=== PATIENT | female | born 1970 | race Caucasian/White ===

== ENCOUNTER 2020-12-16 05:50 | Emergency (ER) | payer OTHER ==
[~2020-12-16] VITALS: Ht 175.3 cm; Wt 95.3 kg
[~2020-12-16 05:50] MED LIST: CIPR500T4 PO; FURO-572 PO; INDO-323 PO; LISI-487 PO; METO25TA PO
--- NOTE | 2020-12-16 06:15 | NUR ---
50 yo f [facility] for c/o body pain. per EMS family stated pt used meth x2 days ago. pt denies meth use; pt states she smoked THC and cigarettes, drank alcohol 1/2 pint. pt not wanting to hurt herself or others. pt AAOx3, following commands, talkative. hx: schizophrenia ---off meds x4 yrs ago, multi drug abuse, RA, CHF, COPD, asthma ax: codeine, pcn meds: unknown lmp: x 3-4 yrs ago
[2020-12-16 06:25] VITALS: BP 140/107
[2020-12-16] MEDS ORDERED: KETOROLAC 60 MG/2 ML VIAL IM ONE (06:40)
--- NOTE | 2020-12-16 06:59 | NUR ---
water given to pt, pt unable to void @ this time.
--- NOTE | 2020-12-16 07:19 | NUR ---
report given to day shift for continuity of care.
[2020-12-16 08:04] LABS: BASOPHILS % (AUTO) 0.3 % (0.0-2.0); EOSINOPHILS # (AUTO) 0.2 K/uL (0-0.4); EOSINOPHILS % (AUTO) 2.4 % (0.0-4.0); HEMATOCRIT 38.8 % (36-48); LYMPHOCYTES # (AUTO) 1.4 K/uL (2.5-16.5); LYMPHOCYTES % (AUTO) 14.1 % (20.5-51.1); MEAN CORPUSCULAR HEMOGLOBIN 30 pg (27-31); MEAN CORPUSCULAR HGB CONC 34 g/dL (33-37); MEAN CORPUSCULAR VOLUME 89.3 fL (80-94); MONOCYTES # (AUTO) 0.3 K/uL (0.8-1.0); MONOCYTES % (AUTO) 2.6 % (1.7-9.3); NEUTROPHILS # (AUTO) 7.8 K/uL (1.8-7.7); NEUTROPHILS % (AUTO) 80.6 % (42.2-75.2); PLATELET COUNT (AUTO) 264 K/uL (140-450); RED BLOOD CELL COUNT(AUTO) 4.34 MIL/uL (4.20-5.40); RED CELL DISTRIBUTION WIDTH 14.3 % (11.6-13.7); WHITE BLOOD COUNT (AUTO) 9.7 K/uL (4.8-10.8)
[2020-12-16 08:13] LABS: ANION GAP 14.8 (8-16); CARBON DIOXIDE 25.7 mmol/L (21-32); CREATININE 0.7 mg/dL (0.6-1.3); POTASSIUM 3.5 mmol/L (3.5-5.1)
--- NOTE | 2020-12-16 08:44 | NUR ---
Called mother and spoke to Kacey. Mother states she does not have anyone to pick her up at this time. She asked we call her back because she was receiving another call.
--- NOTE | 2020-12-16 09:09 | NUR ---
Spoke with patients rupinder Page, stating she will be here in 20-30 min to pick patient up.
[2020-12-16 09:10] VITALS: BP 156/95
--- NOTE | 2020-12-16 09:11 | NUR ---
Patient discharged with v/s stable. Written and verbal after care instructions given and explained. Patient verbalized understanding. Wheel Chair Assisted with to lobby to await niece. All questions addressed prior to discharge. Advised to follow up with PMD.
== END 2020-12-16 09:11 | disposition home or self-care (01) ==
LOC: MED 05:50
DX: R45.1 Restlessness and agitation (principal); M79.10 Myalgia, unspecified site; J45.909 Unspecified asthma, uncomplicated; I11.0 Hypertensive heart disease with heart failure; I50.9 Heart failure, unspecified; E07.9 Disorder of thyroid, unspecified; F12.90 Cannabis use, unspecified, uncomplicated; Z88.0 Allergy status to penicillin; Z88.5 Allergy status to narcotic agent; Z79.899 Other long term (current) drug therapy; Z98.890 Other specified postprocedural states
CPT/HCPCS: 36415; 80048; 81002; 81025; 85025; 96372; 99283; J1885